=== PATIENT | female | born 1985 | race Caucasian/White ===

== ENCOUNTER 2016-08-21 18:47 | Emergency (ER) | payer OTHER ==
[2016-08-21 18:52] VITALS: BP 128/85; PULSE 60; RESP 18; TEMP 97.9; O2SAT 99
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
== END 2016-08-21 19:42 | disposition home or self-care (01) ==
DX: S09.90XA Unspecified injury of head, initial encounter (principal); Z87.891 Personal history of nicotine dependence; V49.49XA Driver injured in collision with other motor vehicles in traffic accident, initial encounter; Y92.410 Unspecified street and highway as the place of occurrence of the external cause; Y93.89 Activity, other specified

== ENCOUNTER 2018-02-14 00:09 | Emergency (ER) | payer OTHER ==
[2018-02-14] MEDS ORDERED: NS 1,000 ML IV ONE (00:27)
--- NOTE | 2018-02-14 00:28 | EDPHY ---
H & P Stated Complaint: RLQ pain intermittent x 24 hrs with nausea Time Seen by Provider: 02/14/18 00:28 HPI/ROS: HPI CHIEF COMPLAINT: Abdominal pain HISTORY OF PRESENT ILLNESS: 32-year-old female, presents emergency room with right-sided lower quadrant abdominal pain that started over 24 hr ago. Patient states around 3:00 a.m. Last night she developed some diffuse abdominal pain. His been persistent, achy, located right lower quadrant. She has had nausea but no vomiting. Also felt flushed and hot. Denies being . Denies urinary symptoms. Denies chest pain or shortness of breath. Pain is mainly located right lower quadrant. Past Medical History: No medical history Past Surgical History: No surgical history Social History: Occasional alcohol use. Denies drugs or tobacco. Family History: Noncontributory ROS REVIEW OF SYSTEMS: 10 Systems were reviewed and negative with the exception of the elements mentioned in the history of present illness. Exam Constitutional triage nursing summary reviewed, vital signs reviewed, awake/ alert. Eyes normal conjunctivae and sclera, EOMI, PERRLA. HENT normal inspection, atraumatic, moist mucus membranes, no epistaxis, neck supple/ no meningismus, no raccoon eyes. Respiratory clear to auscultation bilaterally, normal breath sounds, no respiratory distress, no wheezing. Cardiovascular rate normal, regular rhythm, no murmur, no edema, distal pulses normal. Gastrointestinal mild tender palpation right lower quadrant, no rebound, no guarding, normal bowel sounds, no distension, no pulsatile mass. Genitourinary no CVA tenderness. Musculoskeletal no midline vertebral tenderness, full range of motion, no calf swelling, no tenderness of extremities, no meningismus, good pulses, neurovascularly intact. Skin pink, warm, & dry, no rash, skin atraumatic. Neurologic awake, alert and oriented x 3, AAOx3, moves all 4 extremities equally, motor intact, sensory intact, CN II-XII intact, normal cerebellar, normal vision, normal speech. Psychiatric normal mood/affect. Heme/Lymph/Immune no lymphadenopathy. Differential diagnosis includes but is not limited to and in no particular order : Bowel obstruction, appendicitis, gallbladder disease, diverticulitis, colitis , enteritis, perforated viscus, gastritis, GERD, esophagitis, urinary tract infection, pyelonephritis, kidney stones Medical Decision Making: Plan for this patient IV establishment IV fluid bolus , IV Dilaudid for pain control 0.5 mg, IV Zofran for nausea, normal saline, basic blood work, test, CT scan abdomen pelvis with IV contrast rule out acute appendicitis. Re-evaluation: CT abdomen pelvis with IV contrast shows no evidence of acute appendicitis. Called to me by Dr. Hopkins. 0306: Patient re-examined at this time is resting comfortably. CT scan abdomen pelvis shows no evidence of acute appendicitis. Does show constipation. I did reexamine patient at this time abdomen is soft nontender. We discussed her CT results and blood work. Recommend return precautions she understands return emergency room she develops worsening abdominal pain, fever, vomiting. Will give a prescription Mag citrate for constipation. Return if worse. She understands. Source: Patient - Personal History LMP (Females 10-55): 8-14 Days Ago Current Tetanus/Diphtheria Vaccine: No - Medical/Surgical History Hx Asthma: No Hx Chronic Respiratory Disease: No Hx Diabetes: No Hx Cardiac Disease: No Hx Renal Disease: No Hx Cirrhosis: No Hx Alcoholism: No Hx HIV/AIDS: No Hx Splenectomy or Spleen Trauma: No Other PMH: denies - Social History Smoking Status: Former smoker Constitutional: Initial Vital Signs Temperature (C) 36.6 C 02/14/18 00:19 Heart Rate 83 02/14/18 00:19 Respiratory Rate 16 02/14/18 00:19 Blood Pressure 120/85 H 02/14/18 00:19 O2 Sat (%) 97 02/14/18 00:19 O2 Delivery Mode Room Air Allergies/Adverse Reactions: No Known Allergies Allergy (Unverified 08/21/16 18:48) Home Medications: Medication Instructions Recorded Magnesium Citrate [Citrate of 296 ml PO DAILY #1 solution 02/14/18 Magnesia] Ondansetron HCl [Zofran] 4 mg PO Q4-6PRN PRN #10 tablet 02/14/18 Medical Decision Making - Data Points Laboratory Results: Laboratory Results 02/14/18 00:30 02/14/18 00:30 02/14/18 02/14/18 02/14/18 02:00 00:30 00:30 WBC RBC Hgb Hct MCV MCH MCHC RDW Plt Count MPV Neut % (Auto) Lymph % (Auto) [place] % (Auto) Eos % (Auto) Baso % (Auto) Nucleat RBC Rel Count Absolute Neuts (auto) Absolute Lymphs (auto) Absolute Monos (auto) Absolute Eos (auto) Absolute Basos (auto) Absolute Nucleated RBC Immature Gran % Immature Gran # Sodium 143 mEq/L mEq/L (135-145) Potassium 4.3 mEq/L mEq/L (3.3-5.0) Chloride 109 mEq/L mEq/L (97-110) Carbon Dioxide 22 mEq/l mEq/l (22-31) Anion Gap 12 mEq/L mEq/L (8-16) BUN 13 mg/dL mg/dL (7-23) Creatinine 0.7 mg/dL mg/dL (0.6-1.0) Estimated GFR > 60 Glucose 96 mg/dL mg/dL (70-100) Calcium 9.4 mg/dL mg/dL (8.5-10.4) Total Bilirubin 0.9 mg/dL mg/dL (0.1-1.4) Conjugated Bilirubin 0.2 mg/dL mg/dL (0.0-0.5) Unconjugated Bilirubin 0.7 mg/dL mg/dL (0.0-1.1) AST 31 IU/L IU/L (14-46) ALT 30 IU/L IU/L (9-52) Alkaline Phosphatase 80 IU/L IU/L (38-126) Total Protein 7.3 g/dL g/dL (6.3-8.2) Albumin 4.4 g/dL g/dL (3.5-5.0) Lipase 81 IU/L IU/L (23-300) Beta HCG, Qual NEGATIVE Urine Color PALE YELLOW Urine Appearance CLEAR Urine pH 5.0 (5.0-7.5) Ur Specific [place] 1.017 (1.002-1.030) Urine Protein NEGATIVE (NEGATIVE) Urine Ketones NEGATIVE (NEGATIVE) Urine Blood 1+ H (NEGATIVE) Urine Nitrate NEGATIVE (NEGATIVE) Urine Bilirubin NEGATIVE (NEGATIVE) Urine Urobilinogen NEGATIVE EU EU (0.2-1.0) Ur Leukocyte Esterase NEGATIVE (NEGATIVE) Urine RBC NONE SEEN /hpf /hpf (0-3) Urine WBC 1-3 /hpf /hpf (0-3) Ur Epithelial Cells TRACE /lpf /lpf (NONE-1+) Urine Mucus TRACE /lpf /lpf (NONE-1+) Urine Glucose NEGATIVE (NEGATIVE) 02/14/18 00:30 WBC 5.71 10^3/uL 10^3/uL (3.80-9.50) RBC 4.81 10^6/uL 10^6/uL (4.18-5.33) Hgb 15.6 g/dL g/dL (12.6-16.3) Hct 43.9 % % (38.0-47.0) MCV 91.3 fL fL (81.5-99.8) MCH 32.4 pg pg (27.9-34.1) MCHC 35.5 g/dL g/dL (32.4-36.7) RDW 12.0 % % (11.5-15.2) Plt Count 224 10^3/uL 10^3/uL (150-400) MPV 10.5 fL fL (8.7-11.7) Neut % (Auto) 49.3 % % (39.3-74.2) Lymph % (Auto) 41.2 % % (15.0-45.0) [place] % (Auto) 6.3 % % (4.5-13.0) Eos % (Auto) 2.1 % % (0.6-7.6) Baso % (Auto) 0.7 % % (0.3-1.7) Nucleat RBC Rel Count 0.0 % % (0.0-0.2) Absolute Neuts (auto) 2.82 10^3/uL 10^3/uL (1.70-6.50) Absolute Lymphs (auto) 2.35 10^3/uL 10^3/uL (1.00-3.00) Absolute Monos (auto) 0.36 10^3/uL 10^3/uL (0.30-0.80) Absolute Eos (auto) 0.12 10^3/uL 10^3/uL (0.03-0.40) Absolute Basos (auto) 0.04 10^3/uL 10^3/uL (0.02-0.10) Absolute Nucleated RBC 0.00 10^3/uL 10^3/uL (0-0.01) Immature Gran % 0.4 % % (0.0-1.1) Immature Gran # 0.02 10^3/uL 10^3/uL (0.00-0.10) Sodium Potassium Chloride Carbon Dioxide Anion Gap BUN Creatinine Estimated GFR Glucose Calcium Total Bilirubin Conjugated Bilirubin Unconjugated Bilirubin AST ALT Alkaline Phosphatase Total Protein Albumin Lipase Beta HCG, Qual Urine Color Urine Appearance Urine pH Ur Specific [place] Urine Protein Urine Ketones Urine Blood Urine Nitrate Urine Bilirubin Urine Urobilinogen Ur Leukocyte Esterase Urine RBC Urine WBC Ur Epithelial Cells Urine Mucus Urine Glucose Medications Given: Discontinued Medications Hydromorphone HCl (Dilaudid) 0.5 mg IVP EDNOW ONE Stop: 02/14/18 00:33 Last Admin: 02/14/18 00:44 Dose: 0.5 mg Sodium Chloride (Ns) 1,000 mls @ 0 mls/hr IV EDNOW ONE; Wide Open PRN Reason: Protocol Stop: 02/14/18 00:28 Last Admin: 02/14/18 00:43 Dose: 1,000 mls Ondansetron HCl (Zofran) 4 mg IVP EDNOW ONE Stop: 02/14/18 00:33 Last Admin: 02/14/18 00:44 Dose: 4 mg Departure - Departure Disposition: Home, Routine, Self-Care Clinical Impression: Abdominal pain Qualifiers: Abdominal location: generalized Qualified Code(s): R10.84 - Generalized abdominal pain Constipation Qualifiers: Constipation type: slow transit constipation Qualified Code(s): K59.01 - Slow transit constipation Condition: Good Instructions: Acute Abdominal Pain (ED), Constipation (ED) Additional Instructions: 1. Return emergency room if he develops worsening abdominal pain, fever, vomiting 2. Stool softeners. Referrals: AUGUSTINA HICKS [Primary Care Provider] - As per Instructions Prescriptions: Magnesium Citrate [Citrate of Magnesia] 296 ml PO DAILY #1 solution Ondansetron HCl [Zofran] 4 mg PO Q4-6PRN PRN #10 tablet PRN Reason: Nausea/Vomiting, Use 1st
[2018-02-14] MEDS ORDERED: HYDROmorphONE/DILAUDID 2 MG/ML INJ IVP ONE (00:32)
[2018-02-14] MEDS ORDERED: ONDANSETRON 4 MG/2 ML VIAL IVP ONE ×2 (00:32→03:25)
[2018-02-14 01:08] LABS: PLATELET COUNT 224 10^3/uL (150-400)
[2018-02-14] MEDS ORDERED: IOPAMIDOL (ISOVUE-300) 100 ML BTL ONE (01:13)
[2018-02-14] MEDS ORDERED: KETOROLAC 15 MG/1 ML SDV IVP ONE (03:06)
[2018-02-14] MEDS ORDERED: ONDANSETRON 4 MG/2 ML VIAL ONE (03:23)
[2018-02-14 03:40] VITALS: BP 134/89
== END 2018-02-14 03:39 | disposition home or self-care (01) ==
DX: R10.84 Generalized abdominal pain (principal); K59.01 Slow transit constipation; Z87.891 Personal history of nicotine dependence
CPT/HCPCS: 96374; J1170; J1885; J2405; Q9967